=== PATIENT | male | born 1960 | race Caucasian/White ===

== ENCOUNTER 2016-12-27 15:54 | Emergency (ER) | payer OTHER ==
[~2016-12-27] VITALS: Ht 188 cm; Wt 96.9 kg
[~2016-12-27 15:54] MED LIST: ACCUPRIL40 MG PO; ASCORBIC ACID500 M3 PO; ASPIRIN81 M2 PO; CELEBREX200 MG PO; COUMADIN1 MG PO; DOCUSATE SODIU100 MG PO; LOVENOX40 MG/0.4 SC; METHOCARBAMOL500 MG PO; OXYCODONE HCL5 MG PO; PANTOPRAZOLE SO40 MG PO; POLYETHYLENE GL17 GM PO; [UNRECOGNIZED DRUG - OTHER] PO
[2016-12-27] MEDS ORDERED: BICALUTAMIDE50 MG PO (17:26)
[2016-12-27] MEDS ORDERED: VALSARTAN320 MG PO (17:27)
[2016-12-27] MEDS ORDERED: LO-DOSE ASPIRIN81 M2 PO (17:27)
[2016-12-27 17:56] LABS: HEMATOCRIT 37.5 % (38.0-50.0); MCH 31.2 PG (29.0-34.0); MCHC 33.1 G/DL (30.0-36.0); MCV 94.5 FL (86-99); MEAN PLAT.VOLUME 7.8 uM^3 (9.0-12.4); PLATELET COUNT 201 K/uL (156-360); RBC DIS.WIDTH-CV 13.6 % (11.8-14.6); RBC DIS.WIDTH-SD 47.4 % (39-53); RED BLOOD COUNT 3.97 M/uL (4.00-5.50); WHITE BLOOD COUNT 6.2 K/uL (4.1-10.2)
[2016-12-27 18:10] LABS: CHLORIDE 99 mEq/L (99-109); POTASSIUM 4.8 mEq/L (3.7-5.4); SODIUM 135 mEq/L (136-147)
[2016-12-27 18:11] LABS: GLUCOSE 99 mg/dL (70-99)
[2016-12-27 18:13] LABS: ANION GAP 14 MEQ/L (2-14)
[2016-12-27 18:15] LABS: GFR ESTIMATE (CALCULATED) > 59 mL/min/
[2016-12-27 18:16] LABS: UREA NITROGEN (BUN) 21 mg/dL (9-23)
[2016-12-27 18:19] LABS: TROP-I INTERPRETATION NEGATIVE; TROPONIN-I < 0.01 ng/mL (0.0-0.30)
[2016-12-27 20:46] LABS: TROP-I INTERPRETATION NEGATIVE; TROPONIN-I < 0.01 ng/mL (0.0-0.30)
[2016-12-27] MEDS ORDERED: TRAMADOL HCL50 MG PO (23:06)
[2016-12-27 23:51] VITALS: BP 135/87
== END 2016-12-28 00:02 | disposition home or self-care (01) ==
LOC: EME 15:54
PROVIDERS: Emergency Medicine
DX: C79.51 Secondary malignant neoplasm of bone (principal); M25.512 Pain in left shoulder; R07.9 Chest pain, unspecified; I10 Essential (primary) hypertension; Z85.46 Personal history of malignant neoplasm of prostate
CPT/HCPCS: 71020; 73030; 80048; 84484; 85027; 93005; 99281; 99285; J2270

== ENCOUNTER 2017-03-03 18:17 | Emergency (ER) | payer OTHER ==
[~2017-03-03] VITALS: Ht 188 cm; Wt 91.8 kg
[~2017-03-03 18:17] MED LIST changes: +BICALUTAMIDE50 MG PO; +LO-DOSE ASPIRIN81 M2 PO; +TRAMADOL HCL50 MG PO; +VALSARTAN320 MG PO
[2017-03-03 19:49] LABS: ADD MIUA? NO; BILIRUBIN NEGATIVE; BLOOD NEGATIVE; COLOR YELLOW ((YELLOW)); GLUCOSE (STRIP) NEGATIVE; KETONES 5; LEUKOCYTES NEGATIVE; NITRITE NEGATIVE; PROTEIN (STRIP) NEGATIVE; SPECIFIC GRAVITY 1.016 (1.000-1.030); UCUL ADDED? NO; UROBILINOGEN 0.2 MG/DL (0.2-1.0)
[2017-03-03 20:09] LABS: HEMATOCRIT 32.2 % (38.0-50.0); MCH 29.6 PG (29.0-34.0); MCHC 33.2 G/DL (30.0-36.0); MCV 89.2 FL (86-99); MEAN PLAT.VOLUME 8.3 uM^3 (9.0-12.4); NRBC (%) 0.5 /100 WBC (0-0); RBC DIS.WIDTH-CV 12.4 % (11.8-14.6); RBC DIS.WIDTH-SD 40.9 % (39-53); RED BLOOD COUNT 3.61 M/uL (4.00-5.50); WHITE BLOOD COUNT 9.6 K/uL (4.1-10.2)
[2017-03-03 20:19] LABS: CHLORIDE 98 mEq/L (99-109); POTASSIUM 4.3 mEq/L (3.7-5.4); SODIUM 133 mEq/L (136-147)
[2017-03-03 20:21] LABS: GLUCOSE 92 mg/dL (70-99)
[2017-03-03 20:22] LABS: ANION GAP 10 MEQ/L (2-14)
[2017-03-03 20:23] LABS: TOTAL BILIRUBIN 0.6 mg/dL (0.0-1.0)
[2017-03-03 20:24] LABS: ALKALINE PHOSPHATASE 1265 IU/L (3-129)
[2017-03-03 20:25] LABS: GFR ESTIMATE (CALCULATED) > 59 mL/min/
[2017-03-03 20:26] LABS: UREA NITROGEN (BUN) 11 mg/dL (9-23)
[2017-03-03 20:58] LABS: ABS NEUTROPHIL COUNT 6.5; ANISOCYTOSIS 1+; ATYPICAL LYMPHOCYTE 0.9 %; BAND NEUTROPHILS 12.4 % (0-8.0); BASOPHILS 0.9 %; EOSINOPHIL ABS CT 0.1; EOSINOPHILS 0.9 % (0-5.0); INSTRUMENT ABS NEUTROPHIL CT 5.3 K/uL; LYMPHOCYTES 11.5 % (15.0-45.0); METAMYELOCYTES 7.1 %; MYELOCYTES 7.1 %; PLAT.SUFFICIENCY ADEQUATE; SEG.NEUTROPHILS 54.8 % (46.0-76.0)
[2017-03-03] MEDS ORDERED: NORCO 5/3251 TABLET PO (21:06)
[2017-03-03 21:33] VITALS: BP 154/88
[2017-03-03 21:33] LABS: PLATELET COUNT 155 K/uL (156-360)
== END 2017-03-03 21:33 | disposition home or self-care (01) ==
LOC: EME 18:17
PROVIDERS: Physician Assistant
DX: I10 Essential (primary) hypertension (principal); C61 Malignant neoplasm of prostate; C79.9 Secondary malignant neoplasm of unspecified site; E87.1 Hypo-osmolality and hyponatremia; G89.3 Neoplasm related pain (acute) (chronic); M54.9 Dorsalgia, unspecified; M54.2 Cervicalgia; I45.19 Other right bundle-branch block; Z79.82 Long term (current) use of aspirin; Z79.1 Long term (current) use of non-steroidal anti-inflammatories (NSAID)
CPT/HCPCS: 70450; 80053; 81003; 85025; 93005; 99281; 99284

== ENCOUNTER 2017-03-05 20:14 | Emergency (ER) | payer OTHER ==
[~2017-03-05] VITALS: Ht 188 cm; Wt 90.9 kg
[~2017-03-05 20:14] MED LIST changes: +NORCO 5/3251 TABLET PO
[2017-03-05 21:27] LABS: HEMATOCRIT 34.5 % (38.0-50.0); MCH 29.8 PG (29.0-34.0); MCHC 33.6 G/DL (30.0-36.0); MCV 88.7 FL (86-99); MEAN PLAT.VOLUME 8.3 uM^3 (9.0-12.4); NRBC (%) 1.1 /100 WBC (0-0); PLATELET COUNT 144 K/uL (156-360); RBC DIS.WIDTH-CV 12.9 % (11.8-14.6); RBC DIS.WIDTH-SD 41.5 % (39-53); RED BLOOD COUNT 3.89 M/uL (4.00-5.50); WHITE BLOOD COUNT 9.6 K/uL (4.1-10.2)
[2017-03-05 21:35] LABS: ADD MIUA? YES; BILIRUBIN NEGATIVE; BLOOD NEGATIVE; GLUCOSE (STRIP) NEGATIVE; KETONES 5; LEUKOCYTES NEGATIVE; NITRITE NEGATIVE; PROTEIN (STRIP) 30; SPECIFIC GRAVITY 1.025 (1.000-1.030); UROBILINOGEN 0.2 MG/DL (0.2-1.0)
[2017-03-05 21:45] LABS: BACTERIA NONE SEEN /HPF; COLOR DK YELLOW ((YELLOW)); EPITHELIAL CELLS RARE /HPF; HYALINE CASTS 0-5 /LPF; MUCUS 2+ /LPF; UCUL ADDED? NO; WHITE BLOOD CELLS 0-5 /HPF (0-5)
[2017-03-05 21:47] LABS: CHLORIDE 92 mEq/L (99-109); POTASSIUM 4.2 mEq/L (3.7-5.4); SODIUM 131 mEq/L (136-147)
[2017-03-05 21:49] LABS: GLUCOSE 106 mg/dL (70-99)
[2017-03-05 21:50] LABS: ANION GAP 14 MEQ/L (2-14)
[2017-03-05 21:53] LABS: GFR ESTIMATE (CALCULATED) > 59 mL/min/; UREA NITROGEN (BUN) 11 mg/dL (9-23)
[2017-03-05 23:57] LABS: ABS NEUTROPHIL COUNT 7.5; ANISOCYTOSIS 1+; BAND NEUTROPHILS 1.8 % (0-8.0); BASOPHILS 0.9 %; EOSINOPHIL ABS CT 0; INSTRUMENT ABS NEUTROPHIL CT 5.9 K/uL; LYMPHOCYTES 15.9 % (15.0-45.0); MACROCYTES 1+; OVALOCYTES 1+; PLAT.SUFFICIENCY ADEQUATE; TEAR DROP CELLS 1+
[2017-03-06 00:14] LABS: SEG.NEUTROPHILS 76.1 % (46.0-76.0)
[2017-03-06 02:43] VITALS: BP 146/85
== END 2017-03-06 02:48 | disposition home or self-care (01) ==
LOC: EME 20:14
DX: R50.9 Fever, unspecified (principal); C79.51 Secondary malignant neoplasm of bone; C61 Malignant neoplasm of prostate; M54.5 Low back pain; I10 Essential (primary) hypertension; Z79.82 Long term (current) use of aspirin
CPT/HCPCS: 71020; 71275; 80048; 81003; 83605; 85025; 87040; 99281; 99285; G0103; J3010; J7030

== ENCOUNTER 2017-03-12 15:19 | Emergency (ER) | payer OTHER ==
[~2017-03-12] VITALS: Ht 188 cm; Wt 88.0 kg
[2017-03-12] MEDS ORDERED: NORCO 5/3251 TABLET PO (17:32)
[2017-03-12 17:42] VITALS: BP 137/101
== END 2017-03-12 17:48 | disposition home or self-care (01) ==
LOC: EME 15:19
DX: R42 Dizziness and giddiness (principal); G47.00 Insomnia, unspecified; R44.3 Hallucinations, unspecified; T40.2X5A Adverse effect of other opioids, initial encounter; M54.6 Pain in thoracic spine; I10 Essential (primary) hypertension; C61 Malignant neoplasm of prostate; C79.51 Secondary malignant neoplasm of bone
CPT/HCPCS: 93005; 99281; 99283

== ENCOUNTER 2017-05-25 15:08 | Inpatient (IN) | payer OTHER ==
[2017-05-25 18:12] VITALS: BP 115/55
[2017-05-25 23:21] VITALS: BP 110/57
[2017-05-26] VITALS (8 sets, daily range): BP systolic 115–143; BP diastolic 62–74
[2017-05-26 12:20] LABS: ALKALINE PHOSPHATASE 1202 IU/L (3-129); ANION GAP 9 MEQ/L (2-14); CHLORIDE 94 MEQ/L (99-109); GFR ESTIMATE (CALCULATED) > 59 mL/min/; GLUCOSE 105 mg/dL (70-99); POTASSIUM 3.5 MEQ/L (3.7-5.4); SAMPLE HEMOLYSIS CHECK 0; SAMPLE ICTERIC CHECK 0; SAMPLE LIPEMIA CHECK 0; SODIUM 136 MEQ/L (136-147); TOTAL BILIRUBIN 0.5 MG/DL (0.0-1.0); UREA NITROGEN (BUN) 23 mg/dL (9-23)
[2017-05-27 00:15] VITALS: BP 123/77
[2017-05-27 01:15] VITALS: BP 127/67
[2017-05-27 07:41] VITALS: BP 137/78
[2017-05-27 16:46] VITALS: BP 120/64
[2017-05-27 17:05] LABS: HEMATOCRIT 25.3 % (38.0-50.0); MCH 29.1 PG (29.0-34.0); NRBC (%) 3.9 /100 WBC (0-0); PLATELET COUNT 114 K/uL (156-360); RBC DIS.WIDTH-CV 18.2 % (11.8-14.6); RED BLOOD COUNT 2.78 M/uL (4.00-5.50); WHITE BLOOD COUNT 6.6 K/uL (4.1-10.2)
[2017-05-27 17:31] LABS: ABS NEUTROPHIL COUNT 4.1; ANISOCYTOSIS 2+; ATYPICAL LYMPHOCYTE 1.7 %; BAND NEUTROPHILS 6.1 % (0-8.0); BASOPHILS 0.9 %; EOSINOPHIL ABS CT 0; INSTRUMENT ABS NEUTROPHIL CT 3.5 K/uL; LYMPHOCYTES 22.8 % (15.0-45.0); MACROCYTES 1+; METAMYELOCYTES 0.9 %; MICROCYTOSIS 1+; MYELOCYTES 1.8 %; NUCLEATED RBC'S 4.4; POLYCHROMASIA 1+; SEG.NEUTROPHILS 55.3 % (46.0-76.0); TEAR DROP CELLS 1+
[2017-05-27 17:33] LABS: ALKALINE PHOSPHATASE 967 IU/L (3-129); ANION GAP 9 MEQ/L (2-14); CHLORIDE 93 MEQ/L (99-109); GFR ESTIMATE (CALCULATED) > 59 mL/min/; GLUCOSE 99 mg/dL (70-99); POTASSIUM 3.5 MEQ/L (3.7-5.4); SAMPLE HEMOLYSIS CHECK 0; SAMPLE ICTERIC CHECK 0; SAMPLE LIPEMIA CHECK 0; SODIUM 134 MEQ/L (136-147); TOTAL BILIRUBIN 0.6 MG/DL (0.0-1.0); UREA NITROGEN (BUN) 18 mg/dL (9-23)
[2017-05-27 19:01] LABS: ADD MIUA? NO; BILIRUBIN NEGATIVE; BLOOD NEGATIVE; COLOR YELLOW ((YELLOW)); GLUCOSE (STRIP) NEGATIVE; KETONES NEGATIVE; LEUKOCYTES NEGATIVE; NITRITE NEGATIVE; PROTEIN (STRIP) NEGATIVE; SPECIFIC GRAVITY 1.015 (1.000-1.030); UCUL ADDED? NO; UROBILINOGEN 0.2 MG/DL (0.2-1.0)
[2017-05-27 19:50] VITALS: BP 126/76
[2017-05-27 23:03] VITALS: BP 123/65
[2017-05-28 05:09] VITALS: BP 116/67
[2017-05-28 06:31] LABS: HEMATOCRIT 26.9 % (38.0-50.0); MCH 29.8 PG (29.0-34.0); MCV 93.1 FL (86-99); MEAN PLAT.VOLUME 8.5 uM^3 (9.0-12.4); NRBC (%) 4.8 /100 WBC (0-0); PLATELET COUNT 124 K/uL (156-360); RBC DIS.WIDTH-CV 18.4 % (11.8-14.6); RBC DIS.WIDTH-SD 61.9 % (39-53); RED BLOOD COUNT 2.89 M/uL (4.00-5.50); WHITE BLOOD COUNT 6.6 K/uL (4.1-10.2)
[2017-05-28 08:18] VITALS: BP 90/71
[2017-05-28 08:35] VITALS: BP 110/60
[2017-05-28 08:35] LABS: PSA FREE > 17.60 ng/mL
[2017-05-28 11:21] VITALS: BP 103/61
[2017-05-28 16:26] VITALS: BP 98/57
[2017-05-28 19:01] VITALS: BP 96/52
[2017-05-29 00:06] VITALS: BP 93/57
[2017-05-29 07:26] VITALS: BP 125/66
[2017-05-29 12:59] VITALS: BP 106/57
[2017-05-29 15:44] VITALS: BP 113/55
[2017-05-30 03:50] VITALS: BP 90/55
[2017-05-30 07:12] VITALS: BP 98/55
[2017-05-30 11:15] VITALS: BP 85/47
[2017-05-30 12:25] LABS: HEMATOCRIT 24.9 % (38.0-50.0); MCH 29.8 PG (29.0-34.0); MCHC 31.7 G/DL (30.0-36.0); MEAN PLAT.VOLUME 8.5 uM^3 (9.0-12.4); NRBC (%) 3.6 /100 WBC (0-0); PLATELET COUNT 110 K/uL (156-360); RBC DIS.WIDTH-CV 18.2 % (11.8-14.6); RBC DIS.WIDTH-SD 62.4 % (39-53); RED BLOOD COUNT 2.65 M/uL (4.00-5.50); WHITE BLOOD COUNT 5.3 K/uL (4.1-10.2)
[2017-05-30 12:51] LABS: ALKALINE PHOSPHATASE 753 IU/L (3-129); ANION GAP 9 MEQ/L (2-14); CHLORIDE 91 MEQ/L (99-109); GFR ESTIMATE (CALCULATED) > 59 mL/min/; GLUCOSE 100 mg/dL (70-99); POTASSIUM 3.7 MEQ/L (3.7-5.4); SAMPLE HEMOLYSIS CHECK 0; SAMPLE ICTERIC CHECK 0; SAMPLE LIPEMIA CHECK 0; SODIUM 134 MEQ/L (136-147)
[2017-05-30 12:59] LABS: TOTAL BILIRUBIN 0.4 MG/DL (0.0-1.0); UREA NITROGEN (BUN) 30 mg/dL (9-23)
[2017-05-30 15:00] VITALS: BP 101/58
[2017-05-30 15:10] VITALS: BP 88/54
[2017-05-30 19:56] VITALS: BP 103/59
[2017-05-31] VITALS (22 sets, daily range): BP systolic 85–122; BP diastolic 50–88
[2017-05-31 02:09] LABS: HEMATOCRIT 23.8 % (38.0-50.0); MCH 29.3 PG (29.0-34.0); MCHC 31.9 G/DL (30.0-36.0); MCV 91.9 FL (86-99); MEAN PLAT.VOLUME 8.4 uM^3 (9.0-12.4); NRBC (%) 4.6 /100 WBC (0-0); PLATELET COUNT 118 K/uL (156-360); RBC DIS.WIDTH-SD 60.4 % (39-53); RED BLOOD COUNT 2.59 M/uL (4.00-5.50); WHITE BLOOD COUNT 5.2 K/uL (4.1-10.2)
[2017-05-31 02:25] LABS: CHLORIDE 93 mEq/L (99-109); POTASSIUM 3.7 mEq/L (3.7-5.4); SODIUM 136 mEq/L (136-147)
[2017-05-31 02:27] LABS: GLUCOSE 110 mg/dL (70-99)
[2017-05-31 02:28] LABS: ANION GAP 12 MEQ/L (2-14)
[2017-05-31 02:29] LABS: TOTAL BILIRUBIN 0.4 mg/dL (0.0-1.0)
[2017-05-31 02:30] LABS: ALKALINE PHOSPHATASE 831 IU/L (3-129)
[2017-05-31 02:31] LABS: GFR ESTIMATE (CALCULATED) > 59 mL/min/
[2017-05-31 02:32] LABS: UREA NITROGEN (BUN) 25 mg/dL (9-23)
[2017-05-31 02:34] LABS: TROP-I INTERPRETATION NEGATIVE; TROPONIN-I 0.03 ng/mL (0.0-0.30)
[2017-05-31 03:57] LABS: METH RESISTANT S AUREUS PCR NEGATIVE (NEGATIVE)
[2017-05-31 04:04] LABS: PROBE CHECK PASS; SPECIMEN PROCESSING CONTROL PASS
[2017-05-31 09:59] LABS: TROP-I INTERPRETATION NEGATIVE; TROPONIN-I 0.03 ng/mL (0.0-0.30)
[2017-05-31 14:47] LABS: TROP-I INTERPRETATION NEGATIVE; TROPONIN-I 0.02 ng/mL (0.0-0.30)
[2017-05-31 19:40] LABS: HEMATOCRIT 28.7 % (38.0-50.0); MCH 29.3 PG (29.0-34.0); MCHC 31.7 G/DL (30.0-36.0); MCV 92.3 FL (86-99); MEAN PLAT.VOLUME 8.2 uM^3 (9.0-12.4); NRBC (%) 4.3 /100 WBC (0-0); PLATELET COUNT 115 K/uL (156-360); RBC DIS.WIDTH-CV 17.8 % (11.8-14.6); RBC DIS.WIDTH-SD 58.9 % (39-53)
[2017-05-31 19:56] LABS: RED BLOOD COUNT 3.11 M/uL (4.00-5.50)
[2017-05-31 20:34] LABS: ABS NEUTROPHIL COUNT 4.1; ANISOCYTOSIS 1+; BAND NEUTROPHILS 3.7 % (0-8.0); EOSINOPHIL ABS CT 0.1; EOSINOPHILS 0.9 % (0-5.0); INSTRUMENT ABS NEUTROPHIL CT 3.3 K/uL; LYMPHOCYTES 22.9 % (15.0-45.0); METAMYELOCYTES 0.9 %; MYELOCYTES 1.8 %; NUCLEATED RBC'S 7.3; PLAT.SUFFICIENCY ADEQUATE; SEG.NEUTROPHILS 65.2 % (46.0-76.0)
[2017-06-01] VITALS (7 sets, daily range): BP systolic 98–130; BP diastolic 62–77
[2017-06-02 00:24] VITALS: BP 140/76
[2017-06-02 03:45] VITALS: BP 134/73
[2017-06-02 07:30] VITALS: BP 139/68
[2017-06-02 12:00] VITALS: BP 156/77
[2017-06-02] MEDS ORDERED: HYDROMORPHONE HC4 MG PO (15:00)
[2017-06-02] MEDS ORDERED: MORPHINE SULFAT15 M1 PO (15:00)
[2017-06-02 16:00] VITALS: BP 140/71
[2017-06-02] MEDS ORDERED: VALSARTAN160 MG PO (16:13)
[2017-06-02] MEDS ORDERED: DILTIAZEM 24HR120 MG PO (16:13)
[2017-06-02] MEDS ORDERED: DIGOXIN250 MCG PO (16:13)
== END 2017-06-02 18:26 | disposition home health service (06) | DRG 948 ==
LOC: 5EAST 15:08 → ENRESERV 15:14 → 4EAST 16:18 → 5EAST 16:18 → ENRESERV 05-31 02:07 → 4WEST 05-31 02:33 → ENRESERV 06-01 12:58 → 4EAST 06-01 14:35 → ENRESERV 06-02 13:28 → 4EAST 06-02 18:26
PROVIDERS: Internal Medicine; Internal Medicine Hematology & Oncology; Nurse Practitioner Adult Health
PROC: 30233N1 Transfusion of Nonautologous Red Blood Cells into Peripheral Vein, Percutaneous Approach (ICD-10-PCS; principal; 2017-05-26)
PROC: DP0C0ZZ Beam Radiation of Other Bone using Photons <1 MeV (ICD-10-PCS; 2017-06-02)
DX: G89.3 Neoplasm related pain (acute) (chronic) (principal); C79.51 Secondary malignant neoplasm of bone; C61 Malignant neoplasm of prostate; D63.0 Anemia in neoplastic disease; D63.8 Anemia in other chronic diseases classified elsewhere; M54.2 Cervicalgia; M54.5 Low back pain; M54.6 Pain in thoracic spine; I48.91 Unspecified atrial fibrillation; I10 Essential (primary) hypertension; R40.0 Somnolence; R50.9 Fever, unspecified; R53.83 Other fatigue; R60.9 Edema, unspecified; R53.81 Other malaise; Z79.82 Long term (current) use of aspirin; Z92.21 Personal history of antineoplastic chemotherapy
CPT/HCPCS: 36415; 71020; 77290; 77307; 77334; 80053; 81003; 83605; 84154 GA; 84443; 84484; 85025; 85027; 86850; 86900; 86901; 86920; 87040; 87641; 93005; 93306; 94799; G0103; J1160; J1170; J1200; J1644; J7040; P9016

== ENCOUNTER 2017-06-03 18:52 | Emergency (ER) | payer OTHER ==
[~2017-06-03] VITALS: Ht 188 cm; Wt 83.2 kg
[~2017-06-03 18:52] MED LIST changes: +DIGOXIN250 MCG PO; +DILTIAZEM 24HR120 MG PO; +HYDROMORPHONE HC4 MG PO; +MORPHINE SULFAT15 M1 PO; +VALSARTAN160 MG PO
[2017-06-03 20:02] LABS: HEMATOCRIT 30.6 % (38.0-50.0); MCH 29.5 PG (29.0-34.0); MCV 89.5 FL (86-99); MEAN PLAT.VOLUME 8.5 uM^3 (9.0-12.4); NRBC (%) 2.9 /100 WBC (0-0); PLATELET COUNT 125 K/uL (156-360); RBC DIS.WIDTH-CV 17.1 % (11.8-14.6); RED BLOOD COUNT 3.42 M/uL (4.00-5.50); WHITE BLOOD COUNT 8.8 K/uL (4.1-10.2)
[2017-06-03 20:10] LABS: CHLORIDE 89 mEq/L (99-109); POTASSIUM 3.7 mEq/L (3.7-5.4); SODIUM 131 mEq/L (136-147)
[2017-06-03 20:12] LABS: GLUCOSE 93 mg/dL (70-99)
[2017-06-03 20:14] LABS: ANION GAP 16 MEQ/L (2-14)
[2017-06-03 20:16] LABS: GFR ESTIMATE (CALCULATED) > 59 mL/min/
[2017-06-03 20:17] LABS: UREA NITROGEN (BUN) 15 mg/dL (9-23)
[2017-06-03 20:24] LABS: TROP-I INTERPRETATION NEGATIVE; TROPONIN-I < 0.01 ng/mL (0.0-0.30)
[2017-06-04 00:23] VITALS: BP 122/66
== END 2017-06-04 00:23 | disposition left against medical advice (07) ==
LOC: EME → EDBD 18:52 → EME 18:52
PROVIDERS: Emergency Medicine
DX: R07.9 Chest pain, unspecified (principal); R06.02 Shortness of breath; R60.1 Generalized edema; C61 Malignant neoplasm of prostate; C79.51 Secondary malignant neoplasm of bone; I10 Essential (primary) hypertension
CPT/HCPCS: 80048; 84484; 85027; 93005; 99281; 99285; J1170; J7030; J7050